=== PATIENT | male | born 1955 | race Hispanic/Latino ===

== ENCOUNTER 2022-11-23 02:38 | Emergency (ER) | payer OTHER ==
[2022-11-23] MEDS ORDERED: MORPHINE 4 MG SYG ONE (02:56)
[2022-11-23] MEDS ORDERED: ONDANSETRON 4MG INJ ONE (02:56)
[2022-11-23] MEDS ORDERED: DIAZEPAM 5 MG/ML 2 ML SYG ONE (03:22)
[2022-11-23 15:43] LABS: ALBUMIN 3.5 g/dL (3.5-5.0); BASOPHILS # (AUTO) 0.07 K/uL (0.00-0.20); BASOPHILS % (AUTO) 0.9 % (0.0-5.0); BILIRUBIN,TOTAL 0.3 mg/dL (0.2-1.0); EOSINOPHILS # (AUTO) 0.36 K/uL (0.00-0.70); EOSINOPHILS % (AUTO) 4.5 % (0.0-8.0); HEMATOCRIT 38.7 % (42-54); IMMATURE GRANULOCYTE ABSOLUTE 0.03 K/uL (0-1); LYMPHOCYTES # (AUTO) 1.8 K/uL (1.0-4.8); LYMPHOCYTES % (AUTO) 22.3 % (21.0-51.0); MEAN CORPUSCULAR HEMOGLOBIN 28.9 pg (27.0-33.0); MEAN CORPUSCULAR HGB CONC 34.4 g/dL (32.0-36.0); MEAN CORPUSCULAR VOLUME 83.9 fL (79-99); MONOCYTES # (AUTO) 0.6 K/uL (0.1-1.0); NEUTROPHILS # (AUTO) 5.1 K/uL (1.8-7.7); NEUTROPHILS % (AUTO) 63.9 % (40.0-77.0); PLATELET COUNT (AUTO) 303 K/uL (130-400); POTASSIUM 3.9 mmol/L (3.5-5.1); RED BLOOD CELL COUNT(AUTO) 4.61 MIL/uL (4.50-6.20); RED CELL DISTRIBUTION WIDTH 14.3 % (11.0-15.5); TOTAL PROTEIN, SERUM 7.4 g/dL (6.0-8.3)
[2022-11-23 15:44] LABS: APPEARANCE,URINE CLEAR (CLEAR); BILIRUBIN,URINE NEGATIVE (NEGATIVE); COLOR,URINE YELLOW (YELLOW); GLUCOSE, URINE (UA) NEGATIVE (NEGATIVE); KETONES,URINE NEGATIVE (NEGATIVE); OCCULT BLOOD,URINE NEGATIVE (NEGATIVE); PH,URINE 5.5 (5.0-8.0); PROTEIN,URINE NEGATIVE (NEGATIVE); UROBILINOGEN,URINE 0.2 mg/dL (0.2-1.0)
[2022-11-23 15:45] LABS: ADD UA MICROSCOPIC NO; LEUKOCYTE ESTERASE ,URINE NEGATIVE Leu/uL (NEGATIVE); NITRATE,URINE NEGATIVE (NEGATIVE)
== END 2022-11-23 06:30 | disposition home or self-care (01) ==
LOC: EDH 02:38
DX: R10.9 Unspecified abdominal pain (principal)
CPT/HCPCS: 99284; 74176; 80053; 83690; 85025; 84154; 84153; 81003; 36415; J3360; J2405; J2270